=== PATIENT | female | born 1955 | race Caucasian/White ===

== ENCOUNTER 2020-02-28 11:50 | Emergency (ER) | payer OTHER, SELFPAY ==
--- NOTE | 2020-02-28 11:56 | DI.RAD.S_ITS ---
PROCEDURE: XR FINGER LT MIN 2V INDICATIONS: crushed injury to long finger TECHNIQUE: AP hand, 2 views of the left finger(s) acquired. COMPARISON: None. FINDINGS: Bones: Comminuted , displaced fracture of the distal tuft of the left middle finger. Chronic appearing 1 mm ossicle projects at the PIP joint of the middle finger. Diffuse interphalangeal degenerative spurring. Associated soft tissue swelling. IMPRESSION: Comminuted displaced fracture of the distal tuft of the left middle finger. Dictated by: Marcelo Simpson M.D. on 02/28/2020 at 12:47 Approved by: Marcelo Simpson M.D. on 02/28/2020 at 12:48
[2020-02-28 12:00] VITALS: BP 149/119; PULSE 101; RESP 21; O2SAT 97
[2020-02-28 12:07] VITALS: BP 145/82; PULSE 88; RESP 18; TEMP 36.7; O2SAT 99
[2020-02-28] MEDS: TET,DIPH,PERTUSS(ACELL),VAC/PF 0.5 ML SYRINGE IM (12:24)
[2020-02-28] MEDS: LIDO 1%/SOD BICARB 8.4% (10ML) 10 ML SYRINGE INJ (12:25)
--- NOTE | 2020-02-28 12:25 | ED_ITS ---
HPI - Wound/Laceration <CARLOS Kramer - Last Filed: 02/29/20 03:15> General Chief Complaint: Wound/Laceration Stated Complaint: Finger laceration Time Seen by Provider: 02/28/20 11:51 Source: patient Mode of arrival: Ambulatory Limitations: no limitations History of Present Illness HPI narrative: This is a 64 year female, nonsmoker, who presents to ED with her significant other with chief complain of crushed injury to left distal long finger laceration and severe pain after affected finger got crushed it between trailer hitch and its ball before coming into ED. Patient reports nail fracture and bleeding. Patient lives in [place] and was camping in [place] and was on the way home and in process connecting [place] to their truck. Patient right dominant hand. Reports pain 9/10. Unsure of last tetanus immunization. Reports intact sensation and mobility on affected finger. Patient reports she plays violin and hopes to play violin again. Related Data Home Medications Medication Instructions Recorded Confirmed [NONE] #0 09/12/03 amoxicillin-pot clavulanate tab 02/29/20 Previous Rx's Medication Instructions Recorded cephalexin [Keflex] 500 mg PO Q6H 7 Days #28 cap 02/28/20 hydrocodone-acetaminophen [Delphos] 1 tab PO Q6H PRN #10 tab 02/28/20 Allergies Allergy/AdvReac Type Severity Reaction Status Date / Time tetracycline Allergy Verified 02/28/20 12:33 Review of Systems <CARLOS Kramer - Last Filed: 02/29/20 03:15> Review of Systems Narrative: General: Denies fever, chills, fatigue, malaise, sweats. HEENT: Denies sinus pain, ear pain, sore throat, difficulty swallowing, dizziness. Respiratory: Denies dyspnea, cough, wheezing, hemoptysis, sputum. Cardiovascular: Denies chest pain, palpitations, orthopnea, edema. Gastrointestinal: Denies nausea, vomiting, abdominal pain, diarrhea, constipation, melena. : Denies dysuria, frequency, incontinence, hematuria, urinary retention. Musculoskeletal: HPI Skin: Denies rash, skin lesions, or other. Neurologic: Denies weakness, headache, numbness, change in speech, confusion, seizures, incoordination. Psychiatric: No concerning psychosocial issues. 12-point review of systems is negative except for those stated above. Patient History <CARLOS Kramer - Last Filed: 02/29/20 03:15> Surgical History (Updated 02/28/20 @ 12:28 by CARLOS Kramer) History of appendectomy (Acute) Social History Smoking Status: Never smoker Smoking Status: Never smoker alcohol intake frequency: a few times a month Substance Use Type: does not use Exam <CARLOS Kramer - Last Filed: 02/29/20 03:15> Narrative Exam Narrative: General appearance: well developed, well nourished, in moderate distress from pain. Head: normocephalic, atraumatic, no scalp lesions, non-tender. ENT: Hearing grossly intact. Nose without bleeding, purulent discharge. Airway patent. Neck/Thyroid: neck supple, full range of motion, no visible masses or meningeal signs. No JVD, non-tender without lymphadenopathy. Skin: Left long finger distal phalange with deep and complicated laceration with bleeding involving nail bed and finger pad worse in unlar aspect. Warm and dry and appropriate color for ethnicity. Heart: no clubbing, no cyanosis, no edema. Lungs: Breathing even and unlabored. No stridor. No accessory muscles used. Able to speak in full sentences. Chest: normal shape and expansion. Abdomen: non-obese, non-distended. Neurologic: alert and oriented. Cognitive exam, DENTAL OFFICE RECEPTIONIST and PNS grossly intact on informal exam. Psych: good eye contact, normal affect. Initial Vital Signs Initial Vital Signs: Vital Signs Pulse Rate 101 H 02/28/20 12:00 Respiratory Rate 21 02/28/20 12:00 Blood Pressure 149/119 H 02/28/20 12:00 Pulse Oximetry 97 02/28/20 12:00 Extrem Left upper extremity: full ROM and hand Details: abnormal to inspection, neuromotor exam normal, neurosensory exam normal, tendon exam abnormal, tenderness Location: of the 3rd digit Location: at the distal phalanx, at the nailbed and involving the fingernail, vascular exam Details: radial pulse present, normal ROM of fingers and laceration <Trista Morrow MD - Last Filed: 02/29/20 18:54> Initial Vital Signs Initial Vital Signs: Vital Signs Pulse Rate 101 H 02/28/20 12:00 Respiratory Rate 21 02/28/20 12:00 Blood Pressure 149/119 H 02/28/20 12:00 Pulse Oximetry 97 02/28/20 12:00 Procedures <JUANITA KramerP - Last Filed: 02/29/20 03:15> Laceration Repair Laceration 1: Site: hand (long finger) Side (If applicable): left Size (cm): 5 Description: irregular Depth: simple, single layer Local Anesthetic: lidocaine 1% and with bicarb Amount of anesthesia used (mL): 6 (3 x nerve block) Pre-repair: wound explored and irrigated extensively Skin layer closed with: nylon Size (cm): 3-0 Number of sutures: 5 Technique: simple, interrupted Orthopedic Splinting/Casting Injury #1: Side: left Upper Extremity Injury Location: finger Upper Extremity Immobilizer: finger (other) Scores <JUANITA KramerP - Last Filed: 02/29/20 03:15> GCS Irwin coma scale eye opening: Spontaneous Coward coma scale verbal response: Orientated Irwin coma scale motor response: Obey commands Irwin coma scale total score: 15 Course [facility] Last Filed: 02/29/20 03:15> Orders Ordered: Discontinued Medications Bacitracin (Bacitracin) 1 applic TOP NOW ONE Stop: 02/28/20 14:49 Last Admin: 02/28/20 15:20 Dose: 1 applic Documented by: KUN Cefazolin Sodium (Ancef Vial) 2 gm IV NOW ONE Stop: 02/28/20 12:35 Last Admin: 02/28/20 13:00 Dose: 2 gm Documented by: KUN Diphtheria/Tetanus/Acell Pertussis (Adacel) 0.5 ml IM .ONCE ONE Stop: 02/28/20 11:58 Last Admin: 02/28/20 12:24 Dose: 0.5 ml Documented by: KUN Lidocaine/Sodium Bicarbonate (Buffered Lidocaine 10 Ml Syr) 10 ml INJ NOW ONE Stop: 02/28/20 11:58 Last Admin: 02/28/20 12:25 Dose: 10 ml Documented by: KUN Morphine Sulfate (Morphine) 4 mg IV NOW ONE Stop: 02/28/20 12:49 Last Admin: 02/28/20 13:11 Dose: 4 mg Documented by: KUN <Trista Morrow MD - Last Filed: 02/29/20 18:54> Orders Ordered: Discontinued Medications Bacitracin (Bacitracin) 1 applic TOP NOW ONE Stop: 02/28/20 14:49 Last Admin: 02/28/20 15:20 Dose: 1 applic Documented by: KUN Cefazolin Sodium (Ancef Vial) 2 gm IV NOW ONE Stop: 02/28/20 12:35 Last Admin: 02/28/20 13:00 Dose: 2 gm Documented by: KUN Diphtheria/Tetanus/Acell Pertussis (Adacel) 0.5 ml IM .ONCE ONE Stop: 02/28/20 11:58 Last Admin: 02/28/20 12:24 Dose: 0.5 ml Documented by: KUN Lidocaine/Sodium Bicarbonate (Buffered Lidocaine 10 Ml Syr) 10 ml INJ NOW ONE Stop: 02/28/20 11:58 Last Admin: 02/28/20 12:25 Dose: 10 ml Documented by: KUN Morphine Sulfate (Morphine) 4 mg IV NOW ONE Stop: 02/28/20 12:49 Last Admin: 02/28/20 13:11 Dose: 4 mg Documented by: KUN MDM - Wound/Laceration <CARLOS Kramer - Last Filed: 02/29/20 03:15> Differential Diagnosis Differential diagnosis: Likely laceration and other (Open finger fracture, nail fracture, avulsion of nail) Medical Records Attestation: I reviewed the patient's medical records. Imaging Data XR-Finger LT: Radiologist's Impression: [address] [address] XRay Report Signed Patient: Luke VazquezNER#: [id number] : [id number]:[id number] Age/Sex: 64 / FDate of Service: 02/28/20 Loc: ED Accession Number: [id number] Procedure: XR finger LT min 2V Ordering Provider: Shreyas Mcfarland PROCEDURE: XR FINGER LT MIN 2V INDICATIONS: crushed injury to long finger TECHNIQUE: AP hand, 2 views of the left finger(s) acquired. COMPARISON: None. FINDINGS: Bones: Comminuted , displaced fracture of the distal tuft of the left middle finger. Chronic appearing 1 mm ossicle projects at the PIP joint of the middle finger. Diffuse interphalangeal degenerative spurring. Associated soft tissue swelling. IMPRESSION: Comminuted displaced fracture of the distal tuft of the left middle finger. Dictated by: Marcelo Simpson M.D. on 02/28/2020 at 12:47 Approved by: Marcelo Simpson M.D. on 02/28/2020 at 12:48 [facility] Narrative Medical decision making narrative: This is a 64-year-old female who had crushed injury to non dominant hand, left long distal finger with open comminuted, displaced fracture of distal tuft which was confirmed by x-ray. Patient has intact sensation and was able to flex and extend affected finger. Patient had slow continuous bleeding from the this site with slighly dusky finger pad/tip. Tdap has been updated today. Patient received 2 g of Ancef via IV. Patient staffed with Dr. Hopkins with bedside assessment for treatment plan. Dr. Barrett consulted and reviewed the pictures and he kindly recommended to put loose sutures to keep the laceration together avoiding nail bed. Deep laceration was soaked in Hibiclens solution and irrigated well with normal saline. Distal phalanx laceration had deep and irregular laceration barely held together without intact fingernail. Affected finger received 3 different times and site with digital block. She also received IV morphine for pain. Please see procedural note and patient tolerated procedure well. Affected finger was dressed with Xeroform and bacitracin and covered with Kurling and splinted. Return precautions were discussed along home wound care and to follow up with [facility] orthopedist later this week for re-evaluation. Patient discharged to home with Delphos for severe pain along narcotic pain medication precaution and advised to take [id number] Tylenol Motrin as needed for baseline pain Currenty the patient is taking Augmentin for sinus infection and she has several more days to complete the course. Initially patient was prescribed with Keflex but advised to hold this incomplete Augmentin which will cover skin/joint infection as well. Discharge Plan Departure Patient Disposition: Home Clinical Impression: Finger fracture, left Qualifiers: Encounter type: initial encounter Finger: middle finger Fracture type: open Phalanx: distal Fracture alignment: displaced Qualified Code(s): S62.633B - Displaced fracture of distal phalanx of left middle finger, initial encounter for open fracture Discharge Date/Time: 02/28/20 15:34 Instructions: DI for Laceration Repair -- Finger, DI for Open Fracture Activity Restrictions/Additional Instructions: You have been diagnosed with [open tuff fracture on non dominant hand middle finger tip from crush injury. Tetanus immunization was updated today. You have received IV antibiotic medication Ancef. Laceration have repaired with loose sutures x4. Please use finger splint to protect sutures and fracture on her fingertips.]. What to do: *Take your medications as directed. Please continue with Keflex antibiotic medication 4 times a day for next 7 days. Next antibiotic medication should be taken tonight. Please take [id number] Tylenol and or Motrin as needed for discomfort. Tylenol 650-1000 mg as needed up to 3 to 4 times a day. Ibuprofen 400 mg up to 4 times a day as needed for pain with food to decrease GI irritation. Narcotic pain medication Delphos for severe pain. It can cause drowsiness and constipation so please take precautions. Please do not get your wound soaked in the water until suture removal. Keep your dressing intact for next 24 hrs. After then, you could remove your dressing, wash with soap and water. Pat dry with clean paper towel and dress it with antibiotic ointment. You can change dressing as needed and daily. Please monitor for signs and symptoms for infection such as increasing redness, swelling, warmth, pain, fever, purulent discharge. If this occurs, please return to ED or follow up with your primary care physician since your wound may be gotten infected. Please follow up with your primary care provider in 2-3 days for recheck wound. Your suture should be removed [ 7-10 ] days. This can be done by your primary provider, walk-in clinic or here in ED. Please keep your wound clean, dry and intact all times. *Follow up with your primary care provider in 2-3 days, call for an appointment. And please follow-up with [facility], please call the office to arrange an appointment to be seen and re-evaluated later this week. Let them know you were seen in the ED and that we asked you to be seen in follow up. *Return to ED if you have any new, worsening, or concerning symptoms, such as [chest pain, breathing difficulty, unable to tolerate fluids, signs of infection, or any acute concerns]. Prescriptions: New cephalexin [Keflex] 500 mg capsule 500 mg PO Q6H 7 Days Qty: 28 RF: 0 hydrocodone-acetaminophen [Delphos] 5-325 mg tablet 1 tab PO Q6H PRN (Reason: pain) Qty: 10 RF: 0 No Action [NONE] Qty: 0 RF: 0 amoxicillin-pot clavulanate 875-125 mg tablet RF: 0 Referrals: [facility] [Provider Group] Antonino Gutierrez MD [Primary Care Provider] - <Trista Morrow MD - Last Filed: 02/29/20 18:54> Cosign ED Attending Cosignature Attestation: I was immediately available in the department for consultation throughout this patient's visit. I agree with documentation as above. Trista Morrow MD
--- NOTE | 2020-02-28 12:28 | PC.NURSE ---
xray at bedside
[2020-02-28] MEDS: CEFAZOLIN 1 GM VIAL 2 GM IV (13:00)
[2020-02-28] MEDS: MORPHINE 4 MG/ML INJ IV (13:11)
--- NOTE | 2020-02-28 13:21 | PC.NURSE ---
would cleaned with iv placed antibiotics infusing pt medicated as per mdo for pain
--- NOTE | 2020-02-28 13:33 | PC.NURSE ---
at bedside performing lac repair
[2020-02-28] MEDS: BACITRACIN OINT 0.9 GM PCKT 1 APPLIC TOP (15:20)
--- NOTE | 2020-02-28 15:20 | PC.NURSE ---
dressing applied to wound cdi with bacitracin finger splint applied to affected digit
== END 2020-02-28 15:34 | disposition home or self-care (01) ==
PROVIDERS: Emergency Provider Nurse Practitioner Family; Family Provider Family Medicine; PCP Family Medicine
DX: S62.633B Displaced fracture of distal phalanx of left middle finger, initial encounter for open fracture (principal); X58.XXXA Exposure to other specified factors, initial encounter; Z23 Encounter for immunization
CPT/HCPCS: 73140; 90471; 96374; 96375; 99284; 90715; J0690; J2270

== ENCOUNTER → 2020-05-24 11:11 | Outpatient (CLI) | payer OTHER, SELFPAY ==
[2020-05-24 12:58] LABS: COVID19 -Nasal RAPID Negative (Negative)
== END ==
PROVIDERS: PCP Family Medicine; Visit Provider Physician Assistant
DX: Z11.59 Encounter for screening for other viral diseases (principal)
CPT/HCPCS: 87635

== ENCOUNTER 2020-05-26 10:57 | Day surgery (SDC) | payer OTHER, SELFPAY ==
[2020-05-23 12:11] VITALS: BMI 29.2
[2020-05-26] VITALS (14 sets, daily range): BP systolic 127–139; BP diastolic 46–84; PULSE 59–94; RESP 9–16; TEMP 35.9–36.9; O2SAT 93–100; BMI 29.2
--- NOTE | 2020-05-26 | DI.RAD.S_ITS ---
PROCEDURE: XR FOOT LT 2V INDICATIONS: left foot TECHNIQUE: 2 views of the foot were acquired. COMPARISON: None. FINDINGS: Limited intraoperative fluoroscopic images of the left foot were acquired. Fluoroscopic images demonstrate surgical fixation with percutaneous pins of the 2nd, 3rd, and 4th toes. Surgical screws are noted at the head of the 2nd, 3rd, and 5th metatarsals. Surgical fixation across the proximal phalanx of the left great toe. Arthrodesis with plate and screw fixation at the base of the 1st tarsometatarsal joint. Retrograde cannulated screw also noted in the 1st tarsometatarsal joint. No evidence for gross hardware complication. IMPRESSION: Intraoperative fluoroscopic support for surgical fixation of the left foot as described above. Please see operative note for further details. Dictated by: Herson Harden M.D. on 05/26/2020 at 21:39 Approved by: Herson Harden M.D. on 05/26/2020 at 21:42
[2020-05-26] MEDS: LACTATED RINGERS 1,000 ML 42 ML IV ×2 (12:11→15:45)
[2020-05-26] MEDS: fentaNYL 100 MCG/2 ML INJ 50 MCG IV (12:36)
--- NOTE | 2020-05-26 12:36 | PM.PREOP ---
Pre-operative Note COVID-19 COVID-19 status: Negative Result date/Date tested (Pos, Neg/Pending): 05/24/20 Interval Note History & Physical reviewed/Exam performed by Physician: Yes Changes to H&P: No
--- NOTE | 2020-05-26 12:36 | PM.OP.1 ---
Operative Date/Time/Diagnoses Date of procedure: 05/26/20 Time of procedure: 12:36 Pre-op diagnosis: Left hallux abductovalgus with bunion, brachymetatarsia, hammertoes, tailor's bunionette, metatarsalgia Post-op diagnosis: same Procedure & Clinicians Procedure: Left foot 1. Bunionectomy with first metatarsocuneiform arthrodesis, 2. Hallux phalangeal osteotomy, 3. Tailor's bunionectomy, 4. Metatarsal osteotomies of the second, third, and fifth metatarsals, 5. Proximal interphalangeal joint arthrodesis toes two, three, and four Same procedure as scheduled: Yes Indications: Painful bunions and hammertoes with short fourth metatarsal with forefoot overload pain and difficulty wearing shoes, instability. Conservative measures failed to alleviate her pain and she wished to have surgical intervention at this time. Surgeon: Lizzie Collado Click Yes if Unassisted: Yes Anesthesia Type: General and Peripheral nerve block Operative Notes Closure Type: primary Specimen(s): none sent Applied: implant(s) ([place] 28 JAWS Nitinol Staple, Lap[place]us plate, 4.0 cannulated screw, 2.7 x4 screws, 2.0 x3 screws) Estimated Blood Loss (mL): 40 Blood products transfused: none Tourniquet time (min): 232 Procedure in detail: Following lower extremity block rendered by the anesthesiologist in the preoperative holding area, the patient was brought to the operating room and placed on the operating table in the supine position. A tourniquet was placed about the left thigh. Well padded, appropriately aligned. After induction of general anesthesia the foot and ankle were prepped and draped in the usual aseptic manner. The tourniquet was inflated. Incision was made over the 1st metatarsal cuneiform joint extending to the 1st metatarsophalangeal joint. The incision was deepened through subcutaneous tissues being careful to identify and retract all vital neurovascular structures. All bleeders were cauterized and ligated as necessary. A capsulotomy was performed to the 1st MTPJ exposing the enlarged medial eminence. The saw was used to resect the medial eminence. A rasp was used to reduce the sharp edges of the bone. The MTPJ was quite tight and the 1st interspace was entered and a lateral release was performed which allowed there to be less tension. Attention was then directed to the 1st metatarsocuneiform joint which was entered. The joint was taken down and a saw was used to resect the base of the 1st metatarsal and the distal leading edge of the medial cuneiform. This was done at a slight angle on the medial cuneiform to allow for closure of the intermetatarsal angle. A k-wire was used to fenestrate either side of the former MC joint and was also used. The area was irrigated with copious amounts normal sterile saline. With the aid of C-arm the guidewire was placed for temporary fixation through the 1st metatarsocuneiform joint. I was able to translate the 1st metatarsal slightly medially to allow for better correction. Next the plate was trialed and chosen. Using the guidewire, the lag screw was placed from distal to medial. The fusion site showed good compression and closure. The plate was then attached with the corresponding screws in the normal AO technique. This was reviewed on C-arm and noted to be strong and in appropriate alignment. Next dissection was carried to the proximal phalanx of the hallux. A saw was used to remove a wedge of bone from the diaphysis and this allowed for abduction into better alignment of the hallux. This was then irrigated and then closed with a bone staple. Attention was directed to the 5th metatarsal phalangeal joint where an incision was made. This incision was deepened through subcutaneous tissues being careful to identify and retract all vital neural and vascular structures. All bleeders were cauterized and ligated as necessary. They capsule was entered over the 5th metatarsal head and the enlarged lateral eminence was noted. A saw was used to resect the enlarged lateral eminence and the area was smoothed. The area was irrigated with copious amounts of normal sterile saline. Incision was made over the 2nd toe just distal to the proximal interphalangeal joint extending proximal to the metatarsal phalangeal joint. The same was performed to the 3rd toe and metatarsal and these 2 incisions were then joined and combined to extend further proximal to the metatarsals themselves. These incisions were deepened through subcutaneous tissues being careful to identify and retract all vital neural and vascular structures. All bleeders were cauterized and ligated as necessary. The same procedure but just linearly was performed over the 4th toe and metatarsal and the 5th metatarsal incision was extended just proximally from its original incision. This allowed for visualization of the metatarsal heads and shafts. At the 2nd proximal interphalangeal joint the extensor was resected and the proximal interphalangeal joint was freed. A saw was used to resect the base of the intermediate phalanx and the head of the proximal phalanx. A metatarsophalangeal joint capsulotomy was also performed to allow the toe to sit in more relaxed position. The same procedure was performed to the 3rd toe and 4th toe. Next attention was directed to the 5th metatarsal. After reviewing the parabola on x-ray, a saw was used to perform an osteotomy across from distal dorsal to proximal plantar. This allowed the 5th metatarsal head to slide proximally and a little bit of overhang of that remaining shaft of bone was able to be reduced. Next I reviewed the 4th metatarsal and it appeared that actually this metatarsal was very narrow and had a sharp peak across the entire dorsum. There was also of indentation in its most central aspect where it was even more narrow and this did not allow for any type of plating to be able to be placed on there. I also was not going to be able to attempt lengthening this because of the inability to stabilize it with how narrow and how dystrophic it was. This in was made to continue and work on the other elements that we could to try and justify the height as well as length of the neighboring and remaining metatarsals. Once again reviewing the probable on x-ray, a saw was used to perform an osteotomy from distal dorsal to proximal plantar on the 3rd as well as 2nd metatarsals. On each of them this allowed the metatarsal heads to slide proximally and have a little bit of overhang on the remaining shaft of bone that was able to be reduced. The area was irrigated with copious amounts of normal sterile saline. Temporary fixation using K-wires stabilized these osteotomies and then using standard AO technique, 2.0 screws were placed across the 5th, 3rd, and 2nd metatarsal osteotomies with good stability and alignment after the guidewires were removed. This was verified on C-arm. I took a little bit more bone down from the 2nd and 3rd proximal phalanges in order to have it a little bit more close to parabolic alignment. 0.062 K-wire was used to be placed at the base of the intermediate phalanx and was driven out the tip of the 2nd toe then retrograded back into the proximal phalanx. This was in good alignment and was verified on C-arm. The same procedure was performed to the 3rd toe and on the 4th toe instead, the wire was a 0.045 size. There was 1 spot where little extra bone was placed from a previous resection of her bone in the proximal interphalangeal space base where a small gap was still showing on the 2nd toe. This was once again verified for alignment and checked on 3 planes in C-arm. Redundant K-wire was removed and the ends gently bent and capped. It was found that the cap did not sit well on the 4th toe wire because of its size, so that it was protected by taping it and she was given the K-wire cap she bring home if she needed a replacement for 1 of the others. Once again after irrigation the medial 1st MTP capsule was resected and closed down and alignment with Vicryl. During the process of mobilization to gain less contracture over the metatarsophalangeal joints, the extensor tendon complex was lengthened with a slide over the 4th MTPJ and 2nd MTPJ. At this point these were repaired with 4 O Vicryl. The tourniquet was deflated at the end of 120 minutes and an appropriate amount of time was given before reinflated it. Please see intraoperative notes for details. After the final tourniquet deflation, a prompt hyperemic response was seen in the foot. Deep and subcutaneous closure was closed performed with Vicryl and nylon to the skin. The foot was dressed with a lightly compressive sterile dressing and splint in alignment. She was then placed in a postoperative boot and transferred to PACU with vital signs stable. . Complications: none Post-operative Condition: stable Disposition: PACU Plan for aftercare: Following a period of postoperative monitoring the patient will be discharged home on written and oral postoperative instructions including keeping the dressing dry and intact, no ambulation to the surgical foot, icing and elevating the foot when seated at home. DVT prevention techniques have been reviewed. Due to the time that her surgery was finished, they were unable to poultry picking machine tender her medication at the pharmacy so a new prescription for [place] 5/325 mg tabs was provided today dispense 45.
[2020-05-26] MEDS: MIDAZOLAM 2 MG/2 ML VIAL IV (12:37)
--- NOTE | 2020-05-26 12:39 | SUR.PREOP ---
Block start time [1239 ] . Monitoring initiated and maintained throughout procedure. Oxygen and medications given per anesthesiologist instructions. Patient remained stable throughout procedure, no adverse reactions noted. Block end time 1250 ].
[2020-05-26] MEDS: CEFAZOLIN 2 GM/100 ML FROZ.PIGGY IV (12:55)
[2020-05-26] MEDS: BUPIVACAINE 0.5% (PF) VIAL 30 ML INJ (13:40)
--- NOTE | 2020-05-26 13:45 | SUR.OPER ---
Supine on padded OR bed, head on pillow, arms secured on padded arm boards at <90 degrees abduction, legs uncrossed, safety belt at thigh, tape over blanket over nonoperative leg.
[2020-05-26] MEDS: CEFAZOLIN 1 GM VIAL IV (17:06)
--- NOTE | 2020-05-26 20:08 | SUR.PHASEI ---
Pt arrived to PACU, airway needing chin lift initially then Dr. Neal place nasal trumpet in airway, nasal cannula 02 added for sats to be greater than 90%, airway out 02 weaned down to 1/l presently. New pain med script given to pt's significant other as meds still in pharmacy in [facility], new script filled at [facility] here in [place]. Bear hugger placed for shakes.
[2020-05-26] MEDS: MEPERIDINE 50 MG/ML INJ 12.5 MG IV (20:29)
--- NOTE | 2020-05-26 20:32 | SUR.PHASEI ---
Dr. Collado spoke with pt at bedside in PACU, adjusted boot. Pt still with c/o shakes despite bear max mitchelll given
--- NOTE | 2020-05-26 21:20 | SUR.PHASEII ---
d/c instructions discussed, both voiced an understanding. Pt attempted to get dressed, became slightly nauseated, asked for saline crackers and ice ships, nausea resolved.
--- NOTE | 2020-05-26 22:05 | SUR.PHASEII ---
Nausea resolved with crackers and water, quease ease also at bedside. pt got dressed, assisted to wheel chair and left in stable condition.
== END 2020-05-26 21:45 | disposition home or self-care (01) ==
PROVIDERS: PCP Family Medicine; Referring Provider Podiatrist; Visit Provider Podiatrist
PROC: 0QBP0ZZ Excision of Left Metatarsal, Open Approach (ICD-10-PCS; CPT 28292; principal; 2020-05-26 12:15)
PROC: (CPT 28285; 2020-05-26 12:15)
DX: M20.12 Hallux valgus (acquired), left foot (principal); M21.622 Bunionette of left foot; M77.42 Metatarsalgia, left foot; M20.42 Other hammer toe(s) (acquired), left foot; M25.375 Other instability, left foot
CPT/HCPCS: 28297; 28110; 28308 ×3; 28285 ×3; 64450; 73620; 76000; J0690; J2175; J2250; J3010